=== PATIENT | male | born 1960 | race Caucasian/White ===

== ENCOUNTER 2021-10-23 15:59 | Emergency (ER) | payer OTHER ==
[~2021-10-23] VITALS: Ht 182.9 cm; Wt 96.0 kg
--- NOTE | 2021-10-23 17:21 | PHYS DOC ---
Past History Past Medical History: Cancer, GERD (KLEVER HI APRN) Additional Past Surgical Histo: bowel resection, (KLEVER HI APRN) Smoking: Non-smoker Alcohol Use: None Drug Use: None (KLEVER HI APRN) General Adult EDM: Chief Complaint: CHEST PAIN HPI: HPI: Patient is a 60-year-old male that presents today with chest pain. Patient states pain started about approximately 8 days ago, located on the left chest wall area, he says that he feels like his heart is going to explode. Patient states that 8 days ago he was not doing anything abnormal when the pain started, he did state that working out the pain does worsen somewhat, today he did not work out but he was still having chest pain. Patient denies hypertension, hyperlipidemia, any past medical history of coronary artery disease. Patient states that he has a past medical history of stage IV colon cancer a number of years ago. (KLEVER HI APRN) Review of Systems: Review of Systems: Constitutional: Denies fever or chills Eyes: Denies change in visual acuity HENT: Denies nasal congestion or sore throat Respiratory: Denies cough or shortness of breath Cardiovascular: Chest pain denies edema GI: Denies abdominal pain, nausea, vomiting, bloody stools or diarrhea : Denies dysuria Musculoskeletal: Denies back pain or joint pain Integument: Denies rash Neurologic: Denies headache, focal weakness or sensory changes Endocrine: Denies polyuria or polydipsia Lymphatic: Denies swollen glands Psychiatric: Denies depression or anxiety (KLEVER HI APRN) Current Medications: Current Meds: Current Medications Medications (Trade) Dose Ordered Sig/Paul Start Time Stop Time Status Last Admin Dose Admin Aspirin (Aspirin Chewable) 324 mg 1X ONCE 10/23/21 17:30 10/23/21 17:31 UNV (KLEVER HI PIG FARMER) Physical Exam: PE: Constitutional: Well developed, well nourished, no acute distress, non-toxic appearance. [] HENT: Normocephalic, atraumatic, bilateral external ears normal, oropharynx moist, no oral exudates, nose normal. [] Eyes: PERRLA, EOMI, conjunctiva normal, no discharge. [] Neck: Normal range of motion, no tenderness, supple, no stridor. [] Cardiovascular:Heart rate regular rhythm, no murmur [] Lungs & Thorax: Bilateral breath sounds clear to auscultation [] Abdomen: Bowel sounds normal, soft, no tenderness, no masses, no pulsatile masses. [] Skin: Warm, dry, no erythema, no rash. [] Back: No tenderness, no CVA tenderness. [] Extremities: No tenderness, no cyanosis, no clubbing, ROM intact, no edema. [] Neurologic: Alert and oriented X 3, normal motor function, normal sensory fu nction, no focal deficits noted. [] Psychologic: Affect normal, judgement normal, mood normal. [] (KLEVER HI APRN) Current Patient Data: Labs: Laboratory Tests Test 10/23/21 17:39 10/23/21 19:50 White Blood Count 6.6 x10^3/uL Red Blood Count 4.72 x10^6/uL Hemoglobin 14.3 g/dL Hematocrit 42.2 % Mean Corpuscular Volume 90 fL Mean Corpuscular Hemoglobin 30 pg Mean Corpuscular Hemoglobin Concent 34 g/dL Red Cell Distribution Width 12.9 % Platelet Count 248 x10^3/uL Neutrophils (%) (Auto) 56 % Lymphocytes (%) (Auto) 33 % Monocytes (%) (Auto) 8 % Eosinophils (%) (Auto) 2 % Basophils (%) (Auto) 1 % Neutrophils # (Auto) 3.7 x10^3uL Lymphocytes # (Auto) 2.2 x10^3/uL Monocytes # (Auto) 0.5 x10^3/uL Eosinophils # (Auto) 0.1 x10^3/uL Basophils # (Auto) 0.1 x10^3/uL Prothrombin Time 9.8 SEC Prothromb Time International Ratio 0.9 Activated Partial Thromboplast Time 24 SEC Sodium Level 141 mmol/L Potassium Level 4.1 mmol/L Chloride Level 105 mmol/L Carbon Dioxide Level 26 mmol/L Anion Gap 10 Blood Urea Nitrogen 16 mg/dL Creatinine 1.0 mg/dL Estimated GFR (Cockcroft-Gault) 76.5 BUN/Creatinine Ratio 16 Glucose Level 102 mg/dL Calcium Level 8.7 mg/dL Total Bilirubin 0.5 mg/dL Aspartate Amino Transf (AST/SGOT) 26 U/L Alanine Aminotransferase (ALT/SGPT) 29 U/L Alkaline Phosphatase 95 U/L Troponin I High Sensitivity 9 ng/L 7 ng/L Total Protein 7.2 g/dL Albumin 3.6 g/dL Albumin/Globulin Ratio 1.0 Current Medications Medications (Trade) Dose Ordered Sig/Paul Route PRN Reason Start Time Stop Time Status Last Admin Dose Admin Aspirin (Aspirin Chewable) 324 mg 1X ONCE PO 10/23/21 17:30 10/23/21 17:31 DC 10/23/21 17:34 Ketorolac Tromethamine (Toradol 15mg Vial) 15 mg 1X ONCE IVP 10/23/21 19:00 10/23/21 19:02 DC 10/23/21 19:22 Multi-Ingredient Mouthwash/Gargle (Gi Cocktail) 20 ml 1X ONCE PO 10/23/21 19:00 10/23/21 19:02 DC 10/23/21 19:21 Vital Signs: Vital Signs Date Time Temp Pulse Resp B/P (MAP) Pulse Ox O2 Delivery O2 Flow Rate FiO2 10/23/21 19:15 56 16 135/86 (102) 95 10/23/21 18:45 55 17 142/84 (103) 96 10/23/21 18:15 55 17 141/83 (102) 95 10/23/21 17:45 69 16 137/84 (101) 95 10/23/21 17:17 97.9 64 17 137/74 (95) 96 Room Air (KLEVER HI PIG FARMER) EKG: EKG: EKG #1 done at [address] Hall at 1620 sinus rhythm with no ectopy with a rate of 55 PA interval of 180 ms with a QTC of 402 ms no STEMI EKG done at [address] teen [address] Hall at 1738 shows sinus rhythm no ectopy at a rate of 58 with a PA interval of 184 ms with a QTC of 406. No STEMI [] (KLEVER HI PIG FARMER) Radiology/Procedures: Radiology/Procedures: REASON: chest pain PROCEDURE: PORTABLE CHEST 1V XR CHEST 1V History: Reason: chest pain / Spl. Instructions: / History: Comparison: None. Findings: Mild left basilar linear atelectasis. No consolidation or pleural effusion. Normal heart size. No pneumothorax. Impression: 1. Mild left basilar linear atelectasis. Electronically signed by: Vj Ordoñez DO (10/23/2021 6:51 PM) [facility] [] (KLEVER HI APRN) Heart Score: C/O Chest Pain: Yes HEART Score for Chest Pain: HEART Score for Chest Pain Response (Comments) Value History Slighlty/Non-Suspicious 0 ECG Normal 0 Age >45 - < 65 1 Risk Factors No Risk Factors 0 Troponin < Normal Limit 0 Total 1 Risk Factors: Risk Factors: DM, Current or recent (<one month) smoker, HTN, HLP, family h istory of CAD, obesity. Risk Scores: Score 0 - 3: 2.5% MACE over next 6 weeks - Discharge Home Score 4 - 6: 20.3% MACE over next 6 weeks - Admit for Clinical Observation Score 7 - 10: 72.7% MACE over next 6 weeks - Early Invasive Strategies (KLEVER HI APRN) Course & Med Decision Making: Course & Med Decision Making Pertinent Labs and Imaging studies reviewed. (See chart for details) 2030 reviewed radiological and laboratory results with patient did inform him that he has troponins negative x2, I feel that his pain since it has been ongoing for 8 days and we have had 2 troponins 3 hours apart that are negative that his pain is noncardiac related. I did instruct the patient to return to the emergency department if he has chest pain with nausea and vomiting associated with it, diaphoresis, or pain with exertion. Patient is to follow-up with his primary care physician on Tuesday for further management of this chest pain. Patient verbalizes understanding of this and is agreeable to the plan of care. (KLEVER HI PIG FARMER) Dragon Disclaimer: Dragon Disclaimer: This electronic medical record was generated, in whole or in part, using a voice recognition dictation system. (KLEVER HI APRN) Departure Departure: Impression: Primary Impression: Chest pain Qualified Codes: R07.9 - Chest pain, unspecified Disposition: HOME / SELF CARE / HOMELESS Condition: STABLE Referrals: CHANNING GONZALEZ (PCP) Patient Instructions: Chest Pain (Nonspecific) Additional Instructions: Continue your current medications at home Follow-up with your primary care physician on Tuesday for further management of your chest pain Return to the emergency department if you have chest pain that is unrelieved with rest, pain that has diaphoresis or sweats associated with it, chest pain with nausea and vomiting associated with it or you have pain with exertion. Attending Signature Attending Signature I have participated in the care of this patient and I have reviewed and agree with all pertinent clinical information above including history, exam, and recommendations. (NARESH ACUÑA MD) Dragon Disclaimer This chart was dictated in whole or in part using Voice Recognition software in a busy, high-work load, and often noisy Emergency Department environment. It may contain unintended and wholly unrecognized errors or omissions. (NARESH ACUÑA MD) KLEVER IH APRN Oct 23, 2021 17:21 NARESH ACUÑA MD Oct 25, 2021 01:46
[2021-10-23] MEDS: ASPIRIN CHEWABLE 81 MG TABLET. PO ONE (17:34)
--- NOTE | 2021-10-23 17:40 | EKG ---
[address] [address] Test Date: 2021-10-23 Test Time: 16:19:01 Pat Name: GUILLERMO OROZCO Department: Room: Gender: M Lithographic Proofer: AMINATA : 1960 Requested By: KLEVER HI Order Number: [id number] Reading MD: Jose Torres Measurements Intervals [place] Rate: 55 P: 32 FL: 180 QRS: 83 QRSD: 94 T: 41 QT: 418 QTc: 402 Interpretive Statements SINUS RHYTHM NO SPECIFIC ECG ABNORMALITIES RI6.01 No previous ECG available for comparison Electronically Signed On 10-24-2021 18:34:23 SKIN FITTER by Jose Torres
--- NOTE | 2021-10-23 17:41 | EKG ---
[address] [address] Test Date: 2021-10-23 Test Time: 17:38:51 Pat Name: GUILLERMO OROZCO Department: Room: Gender: M Vice Admiral: AMINATA : 1960 Requested By: KLEVER HI Order Number: [id number] Reading MD: Jose Torres Measurements Intervals [place] Rate: 58 P: 26 TX: 184 QRS: 59 QRSD: 98 T: 21 QT: 410 QTc: 406 Interpretive Statements SINUS RHYTHM Electronically Signed On 10-24-2021 18:32:36 MAINTENANCE OPERATOR by Jose Torres
[2021-10-23 18:09] LABS: BASO # 0.1 x10^3/uL (0.0-0.2); BASO % 1 % (0-3); EOS # 0.1 x10^3/uL (0.0-0.7); EOS % 2 % (0-3); HEMATOCRIT 42.2 % (39.0-53.0); HEMOGLOBIN 14.3 g/dL (13.0-17.5); LYMPH # 2.2 x10^3/uL (1.0-4.8); LYMPH % 33 % (24-48); MEAN CORPUSCULAR HEMOGLOBIN 30 pg (25-35); MEAN CORPUSCULAR HGB CONC 34 g/dL (31-37); MEAN CORPUSCULAR VOLUME 90 fL (79-100); MONO # 0.5 x10^3/uL (0.0-1.1); MONO % 8 % (0-9); NEUT # 3.7 x10^3uL (1.8-7.7); NEUT % 56 % (31-73); PLATELET COUNT 248 x10^3/uL (140-400); RED BLOOD COUNT 4.72 x10^6/uL (4.30-5.70); RED CELL DISTRIBUTION WIDTH 12.9 % (11.5-14.5); WHITE BLOOD COUNT 6.6 x10^3/uL (4.0-11.0)
[2021-10-23 18:25] LABS: CALCIUM 8.7 mg/dL (8.5-10.1); GFR 76.5; POTASSIUM 4.1 mmol/L (3.5-5.1)
[2021-10-23 18:31] LABS: ALBUMIN 3.6 g/dL (3.4-5.0); TOTAL BILIRUBIN 0.5 mg/dL (0.2-1.0); TOTAL PROTEIN 7.2 g/dL (6.4-8.2)
--- NOTE | 2021-10-23 18:53 | RAD ---
XR CHEST 1V History: Reason: chest pain / Spl. Instructions: / History: Comparison: None. Findings: Mild left basilar linear atelectasis. No consolidation or pleural effusion. Normal heart size. No pne umothorax. Impression: 1. Mild left basilar linear atelectasis. Electronically signed by: Vj Ordoñez DO (10/23/2021 6:51 PM) [facility]
[2021-10-23] MEDS: LIDO:MAALOX 1:1 20 ML SINGLE DOSE. PO ONE (19:21)
[2021-10-23] MEDS: KETOROLAC 15 MG/ML VIAL. IVP ONE (19:22)
[2021-10-23 20:38] VITALS: BP 130/91
== END 2021-10-23 20:37 | disposition home or self-care (01) ==
LOC: ER 15:59
DX: R07.89 Other chest pain (principal); K21.9 Gastro-esophageal reflux disease without esophagitis
CPT/HCPCS: 36415; 71045; 80053; 84484; 85025; 85610; 85730; 93005; 96374; 99285; J1885